=== PATIENT | male | born 1940 | race Caucasian/White ===

== ENCOUNTER 2017-03-05 18:23 | Inpatient (IN) | payer OTHER, BC ==
[~2017-03-05] VITALS: Ht 170.2 cm; Wt 75.0 kg
[~2017-03-05 18:23] MED LIST: ALLOPURINOL100 MG PO; ALLOPURINOL300 MG PO; ATENOLOL100 MG PO; ATENOLOL50 M1 PO; ATENOLOL50 MG PO; CIPRO250 MG PO; CLONAZEPAM0.125 MG PO; COLCHICINE0.6 M1 PO; COLCHICINE0.6 MG PO; CYANOCOBAL1000 MCG/2 IM; ECONAZOLE NITRA15 GM TP; EPIPEN ADU0.3 MG/0.3 IM; FOLIC ACID1 MG PO; HALOBETASOL PRO15 G1 TP; KEPPRA500 MG PO; NORCO 5/3251 TABLET PO; NORVASC5 MG PO; SINEMET 25-1001 EACH PO; ZESTRIL,PRINIVI40 MG PO
[2017-03-05 19:28] LABS: HEMATOCRIT 26.6 % (38.0-50.0); MCH 34.9 PG (29.0-34.0); MCHC 33.1 G/DL (30.0-36.0); MCV 105.6 FL (86-99); MEAN PLAT.VOLUME 9.7 uM^3 (9.0-12.4); PLATELET COUNT 141 K/uL (156-360); RBC DIS.WIDTH-CV 14.9 % (11.8-14.6); RBC DIS.WIDTH-SD 57.9 % (39-53); RED BLOOD COUNT 2.52 M/uL (4.00-5.50); WHITE BLOOD COUNT 4.8 K/uL (4.1-10.2)
[2017-03-05 19:39] LABS: CHLORIDE 112 mEq/L (99-109); POTASSIUM 5.2 mEq/L (3.7-5.4)
[2017-03-05 19:40] LABS: SODIUM 140 mEq/L (136-147)
[2017-03-05 19:42] LABS: GLUCOSE 94 mg/dL (70-99)
[2017-03-05 19:43] LABS: ANION GAP 14 MEQ/L (2-14)
[2017-03-05 19:44] LABS: TOTAL BILIRUBIN 0.8 mg/dL (0.0-1.0)
[2017-03-05 19:45] LABS: ALKALINE PHOSPHATASE 38 IU/L (3-129); GFR ESTIMATE (CALCULATED) 19 mL/min/
[2017-03-05 19:47] LABS: UREA NITROGEN (BUN) 86 mg/dL (9-23)
[2017-03-05] MEDS ORDERED: TENORMIN25 MG PO (20:22)
[2017-03-05] MEDS ORDERED: CENTRUM SILVER1 EAC3 PO (20:25)
[2017-03-05] MEDS ORDERED: VITAMIN B-150 MG PO (20:25)
[2017-03-05] MEDS ORDERED: COZAAR25 MG PO (20:26)
[2017-03-05] MEDS ORDERED: FUROSEMIDE20 MG PO (20:26)
[2017-03-05 20:42] LABS: TROP-I INTERPRETATION NEGATIVE; TROPONIN-I < 0.01 ng/mL (0.0-0.30)
[2017-03-05 22:49] LABS: ADD MIUA? NO; BILIRUBIN NEGATIVE; BLOOD NEGATIVE; COLOR STRAW ((YELLOW)); GLUCOSE (STRIP) NEGATIVE; KETONES NEGATIVE; LEUKOCYTES NEGATIVE; NITRITE NEGATIVE; PROTEIN (STRIP) NEGATIVE; SPECIFIC GRAVITY 1.009 (1.000-1.030); UCUL ADDED? NO; UROBILINOGEN 0.2 MG/DL (0.2-1.0)
[2017-03-05 23:55] VITALS: BP 160/77
[2017-03-06] VITALS (7 sets, daily range): BP systolic 107–188; BP diastolic 54–86
[2017-03-06 07:00] LABS: HEMATOCRIT 26.2 % (38.0-50.0); MCH 34.5 PG (29.0-34.0); MCHC 32.8 G/DL (30.0-36.0); MCV 105.2 FL (86-99); MEAN PLAT.VOLUME 10.1 uM^3 (9.0-12.4); PLATELET COUNT 140 K/uL (156-360); RBC DIS.WIDTH-CV 14.8 % (11.8-14.6); RBC DIS.WIDTH-SD 58.4 % (39-53); RED BLOOD COUNT 2.49 M/uL (4.00-5.50); WHITE BLOOD COUNT 4.7 K/uL (4.1-10.2)
[2017-03-06 07:37] LABS: ANION GAP 16 MEQ/L (2-14); CHLORIDE 112 MEQ/L (99-109); GLUCOSE 76 mg/dL (70-99); POTASSIUM 4.9 MEQ/L (3.7-5.4); SAMPLE HEMOLYSIS CHECK 0; SAMPLE ICTERIC CHECK 0; SAMPLE LIPEMIA CHECK 0; SODIUM 141 MEQ/L (136-147); UREA NITROGEN (BUN) 76 mg/dL (9-23)
[2017-03-06 07:39] LABS: GFR ESTIMATE (CALCULATED) 23 mL/min/
[2017-03-06 07:44] LABS: ERTH.SED.RATE 13 MM/HR (0-20)
[2017-03-06 19:16] LABS: HEMATOCRIT 28.8 % (38.0-50.0); MCV 105.5 FL (86-99)
[2017-03-07 06:41] LABS: EOSINOPHIL (%) 2.8 % (0-5); EOSINOPHIL COUNT 0.2 K/uL (0-0.3); HEMATOCRIT 28.6 % (38.0-50.0); IMMATURE GRANULOCYTE (%) 0.4 % (0.0-0.7); INSTRUMENT ABS NEUTROPHIL CT 3.2 K/uL; LYMPHOCYTE COUNT 1.4 K/uL (1.0-2.8); MCH 33.8 PG (29.0-34.0); MCHC 32.9 G/DL (30.0-36.0); MCV 102.9 FL (86-99); MEAN PLAT.VOLUME 10.2 uM^3 (9.0-12.4); MONOCYTE (%) 9.5 % (3-12); MONOCYTE COUNT 0.5 K/uL (0-0.8); NEUTROPHIL (%) 60.9 % (45-76); NEUTROPHIL COUNT 3.2 K/uL (1.8-6.4); PLATELET COUNT 137 K/uL (156-360); RBC DIS.WIDTH-CV 14.6 % (11.8-14.6); RBC DIS.WIDTH-SD 55.2 % (39-53); RED BLOOD COUNT 2.78 M/uL (4.00-5.50); WHITE BLOOD COUNT 5.3 K/uL (4.1-10.2)
[2017-03-07 07:04] LABS: ANION GAP 12 MEQ/L (2-14); CHLORIDE 105 MEQ/L (99-109); SAMPLE HEMOLYSIS CHECK 0; SAMPLE ICTERIC CHECK 0; SAMPLE LIPEMIA CHECK 0; SODIUM 141 MEQ/L (136-147); UREA NITROGEN (BUN) 60 mg/dL (9-23)
[2017-03-07 07:05] LABS: GFR ESTIMATE (CALCULATED) 35 mL/min/; GLUCOSE 112 mg/dL (70-99)
[2017-03-07 07:25] VITALS: BP 148/78
[2017-03-07 17:57] LABS: HEMATOCRIT 28.8 % (38.0-50.0); MCV 104.3 FL (86-99)
[2017-03-07 22:56] VITALS: BP 158/76
[2017-03-08 06:45] LABS: HEMATOCRIT 27.1 % (38.0-50.0); MCH 34.6 PG (29.0-34.0); MCHC 33.6 G/DL (30.0-36.0); MEAN PLAT.VOLUME 9.9 uM^3 (9.0-12.4); PLATELET COUNT 111 K/uL (156-360); RBC DIS.WIDTH-CV 14.6 % (11.8-14.6); RBC DIS.WIDTH-SD 55.9 % (39-53); RED BLOOD COUNT 2.63 M/uL (4.00-5.50); WHITE BLOOD COUNT 5.1 K/uL (4.1-10.2)
[2017-03-08 07:21] LABS: ANION GAP 9 MEQ/L (2-14); CHLORIDE 102 MEQ/L (99-109); GFR ESTIMATE (CALCULATED) 39 mL/min/; GLUCOSE 111 mg/dL (70-99); POTASSIUM 3.2 MEQ/L (3.7-5.4); SAMPLE HEMOLYSIS CHECK 0; SAMPLE ICTERIC CHECK 0; SAMPLE LIPEMIA CHECK 0; SODIUM 140 MEQ/L (136-147); UREA NITROGEN (BUN) 43 mg/dL (9-23)
[2017-03-08 08:41] VITALS: BP 145/98
[2017-03-08] MEDS ORDERED: K-DUR20 MEQ PO (10:05)
[2017-03-08] MEDS ORDERED: PROTONIX40 MG PO (10:05)
[2017-03-08] MEDS ORDERED: AMLODIPINE BESYL5 MG PO (10:05)
[2017-03-10 11:58] LABS: POC NON-PRINT COM 1 ND
== END 2017-03-08 14:18 | disposition home health service (06) | DRG 378 ==
LOC: EME 18:23 → EDOF 22:21 → 5EAST 22:21
PROVIDERS: Hospitalist; Internal Medicine Gastroenterology; Internal Medicine Nephrology; Physician Assistant
PROC: 0DB68ZX Excision of Stomach, Via Natural or Artificial Opening Endoscopic, Diagnostic (ICD-10-PCS; principal; 2017-03-06)
DX: K92.1 Melena (principal); N17.9 Acute kidney failure, unspecified; E87.2 Acidosis; E86.0 Dehydration; D62 Acute posthemorrhagic anemia; N28.1 Cyst of kidney, acquired; E53.8 Deficiency of other specified B group vitamins; E78.00 Pure hypercholesterolemia, unspecified; E78.5 Hyperlipidemia, unspecified; I25.2 Old myocardial infarction; M19.90 Unspecified osteoarthritis, unspecified site; E87.6 Hypokalemia; G20 Parkinson's disease; I12.9 Hypertensive chronic kidney disease with stage 1 through stage 4 chronic kidney disease, or unspecified chronic kidney disease; Z92.3 Personal history of irradiation; Z95.810 Presence of automatic (implantable) cardiac defibrillator; I25.10 Atherosclerotic heart disease of native coronary artery without angina pectoris; K25.9 Gastric ulcer, unspecified as acute or chronic, without hemorrhage or perforation; K27.9 Peptic ulcer, site unspecified, unspecified as acute or chronic, without hemorrhage or perforation; K29.70 Gastritis, unspecified, without bleeding; K76.0 Fatty (change of) liver, not elsewhere classified; K90.0 Celiac disease; M10.9 Gout, unspecified; N18.3 Chronic kidney disease, stage 3 (moderate); Z82.0 Family history of epilepsy and other diseases of the nervous system; Z83.3 Family history of diabetes mellitus; Z85.46 Personal history of malignant neoplasm of prostate; Z87.442 Personal history of urinary calculi; Z87.891 Personal history of nicotine dependence; Z90.49 Acquired absence of other specified parts of digestive tract; Z95.5 Presence of coronary angioplasty implant and graft; M79.672 Pain in left foot; R19.7 Diarrhea, unspecified; F41.9 Anxiety disorder, unspecified; F32.9 Major depressive disorder, single episode, unspecified
CPT/HCPCS: 36415; 74176; 76770; 80048; 80053; 80069; 81003; 81050; 82272; 82330; 82575; 83735; 83930; 84300; 84484; 84550; 85014; 85018; 85025; 85025 91; 85027; 85651; 88305; 88342 TC; 89190; 93005; 99281; 99285; C9113; J7030; J7070